=== PATIENT | female | born 1965 | race Two or more races ===

== ENCOUNTER 2018-08-24 14:45 | Outpatient (CLI) | payer MEDICARE, OTHER | END 2018-08-24 23:59 | disposition home or self-care (01) | LOC: WOU 14:45 | PROVIDERS: ATTEND Surgery | DX: F42.4 Excoriation (skin-picking) disorder (principal); K51.918 Ulcerative colitis, unspecified with other complication; K43.5 Parastomal hernia without obstruction or gangrene; E66.3 Overweight; Z68.28 Body mass index [BMI] 28.0-28.9, adult; Z93.2 Ileostomy status; Z79.899 Other long term (current) drug therapy | CPT/HCPCS: A6402; G0463 ==

== ENCOUNTER 2018-09-27 14:08 | Outpatient (CLI) | payer MEDICARE, OTHER | END 2018-09-27 23:59 | disposition home or self-care (01) | LOC: WOU 14:08 | PROVIDERS: ATTEND Surgery | DX: F42.4 Excoriation (skin-picking) disorder (principal); Z93.2 Ileostomy status; Z87.19 Personal history of other diseases of the digestive system; K43.5 Parastomal hernia without obstruction or gangrene; E66.3 Overweight; Z68.28 Body mass index [BMI] 28.0-28.9, adult; Z79.899 Other long term (current) drug therapy | CPT/HCPCS: A6402; G0463 ==

== ENCOUNTER 2018-10-04 14:30 | Outpatient (CLI) | payer MEDICARE, OTHER | END 2018-10-04 23:59 | disposition home or self-care (01) | LOC: WOU 14:30 | PROVIDERS: ATTEND Surgery | DX: F42.4 Excoriation (skin-picking) disorder (principal); Z93.2 Ileostomy status; K43.5 Parastomal hernia without obstruction or gangrene; K51.918 Ulcerative colitis, unspecified with other complication; E66.3 Overweight; Z68.26 Body mass index [BMI] 26.0-26.9, adult; Z79.899 Other long term (current) drug therapy | CPT/HCPCS: A4364; G0463 ==

== ENCOUNTER 2018-10-11 14:03 | Outpatient (CLI) | payer MEDICARE, OTHER | END 2018-10-11 23:59 | disposition home or self-care (01) | LOC: WOU 14:03 | PROVIDERS: ATTEND Surgery | DX: F42.4 Excoriation (skin-picking) disorder (principal); Z93.2 Ileostomy status; K43.5 Parastomal hernia without obstruction or gangrene; Z87.19 Personal history of other diseases of the digestive system; E66.3 Overweight; Z68.28 Body mass index [BMI] 28.0-28.9, adult | CPT/HCPCS: G0463 ==

== ENCOUNTER 2019-02-07 13:05 | Outpatient (CLI) | payer MEDICARE, OTHER | END 2019-02-07 23:59 | disposition home or self-care (01) | LOC: WOU 13:05 | PROVIDERS: ATTEND Surgery | DX: L98.8 Other specified disorders of the skin and subcutaneous tissue (principal); K43.5 Parastomal hernia without obstruction or gangrene; E66.3 Overweight; Z68.28 Body mass index [BMI] 28.0-28.9, adult; Z93.2 Ileostomy status; Z79.899 Other long term (current) drug therapy | CPT/HCPCS: G0463 ==

== ENCOUNTER 2019-05-23 15:46 | Outpatient (CLI) | payer MEDICARE, MEDICAID | END 2019-05-23 23:59 | disposition home or self-care (01) | LOC: WOU 15:46 | PROVIDERS: ATTEND Surgery | DX: L98.8 Other specified disorders of the skin and subcutaneous tissue (principal); K43.5 Parastomal hernia without obstruction or gangrene; E66.3 Overweight; Z68.28 Body mass index [BMI] 28.0-28.9, adult; Z93.2 Ileostomy status; Z79.899 Other long term (current) drug therapy | CPT/HCPCS: A4217; G0463 ==

== ENCOUNTER 2019-09-17 19:43 | Emergency (ER) | payer MEDICARE, OTHER ==
[~2019-09-17] VITALS: Ht 157.5 cm; Wt 74.8 kg
--- NOTE | 2019-09-17 19:49 | NUR ---
PT AAOX4. AMBULATORY WITH STEADY GAIT. BIBSELF C/O LEFT INDEX FINGER LAC S/P [place]UTTING [place]. EMT AT BEDSIDE FOR WOUND CARE. AWAITING PA FOR EVAL AND ORDERS. NO ACUTE DISTRESS NOTED. VSS.
[2019-09-17] MEDS ORDERED: TDAP [DIPH/PERTUSSIS/TET] 0.5 ML VIAL IM ONE ×2 (20:00→20:02)
[2019-09-17] MEDS ORDERED: LIDOCAINE HCL/MPF 1% 30 ML VIAL IJ ONE (20:01)
--- NOTE | 2019-09-17 20:08 | NUR ---
PA AT BEDSIDE FOR SUTURE
--- NOTE | 2019-09-17 20:30 | NUR ---
Patient discharged to home in stable condition. Written and verbal after care instructions given. Patient verbalizes understanding of instruction and RX. Pt ambulated with steady gait.
[2019-09-17 20:31] VITALS: BP 119/71
[2019-09-17] MEDS ORDERED: CEPHALEXIN MONOHYDRATE 500 MG CAPSULE PO ONE ×2 (20:37→21:00)
== END 2019-09-17 20:39 | disposition home or self-care (01) ==
LOC: ER 19:43
DX: S61.211A Laceration without foreign body of left index finger without damage to nail, initial encounter (principal); W26.8XXA Contact with other sharp object(s), not elsewhere classified, initial encounter; Y93.89 Activity, other specified; Y92.89 Other specified places as the place of occurrence of the external cause; Y99.8 Other external cause status
CPT/HCPCS: 12001; 90471; 90715; 99283; A6403; J3490

== ENCOUNTER 2019-09-27 20:04 | Emergency (ER) | payer MEDICARE, OTHER ==
[~2019-09-27] VITALS: Ht 157.5 cm; Wt 74.8 kg
[2019-09-27 20:11] VITALS: BP 133/85
--- NOTE | 2019-09-27 20:34 | NUR ---
PATIENT'S SUTURES ARE REMOVED
--- NOTE | 2019-09-27 20:39 | NUR ---
Patient discharged to home in stable condition. Written and verbal after care instructions given. Patient verbalizes understanding of instruction.
== END 2019-09-27 20:41 | disposition home or self-care (01) ==
LOC: ER 20:09
DX: S61.211D Laceration without foreign body of left index finger without damage to nail, subsequent encounter (principal); X58.XXXD Exposure to other specified factors, subsequent encounter

== ENCOUNTER 2020-04-23 14:55 | Outpatient (CLI) | payer MEDICARE, OTHER | END 2020-04-23 23:59 | disposition home or self-care (01) | LOC: WOU 14:55 | PROVIDERS: ATTEND Surgery | DX: L98.8 Other specified disorders of the skin and subcutaneous tissue (principal); K43.5 Parastomal hernia without obstruction or gangrene; E66.3 Overweight; Z68.28 Body mass index [BMI] 28.0-28.9, adult; Z93.2 Ileostomy status; Z79.899 Other long term (current) drug therapy; Z87.19 Personal history of other diseases of the digestive system | CPT/HCPCS: G0463 ==

== ENCOUNTER 2020-10-15 14:05 | Outpatient (CLI) | payer MEDICARE, OTHER | END 2020-10-15 23:59 | disposition home or self-care (01) | LOC: WOU 14:05 | PROVIDERS: ATTEND Surgery | DX: K94.03 Colostomy malfunction (principal); R23.8 Other skin changes; K43.5 Parastomal hernia without obstruction or gangrene; E66.3 Overweight; Z68.28 Body mass index [BMI] 28.0-28.9, adult | CPT/HCPCS: G0463 ==

== ENCOUNTER 2020-11-30 17:54 | Emergency (ER) | payer MEDICARE, OTHER ==
[~2020-11-30] VITALS: Ht 157.5 cm; Wt 81.2 kg
[2020-11-30 18:47] VITALS: BP 129/81
--- NOTE | 2020-11-30 18:49 | NUR ---
TO ER CHAIR 3, C/O BLOOD IN URINE AND PAIN WHEN URINATING P/S OF 09/22, AAOX4, BREATHING EVEN AND NON LABORED, AWAITING MD JONES
--- NOTE | 2020-11-30 18:50 | NUR ---
URINE COLLECTED AND SENT LAB
[2020-11-30 19:08] LABS: BILIRUBIN,URINE Negative (NEGATIVE); COLOR,URINE YELLOW (YELLOW); LEUKOCYTE ESTERASE ,URINE Small (NEGATIVE); NITRITE, URINE Negative (NEGATIVE); PH,URINE 5.5 (5.0-8.0); PROTEIN,URINE 30 mg/dl (NEGATIVE); UGLUCOSE Negative (NEGATIVE); UROBILINOGEN,URINE 0.2 EU/dL (0.2)
[2020-11-30 19:15] LABS: BACTERIA,URINE 1+ /HPF (None Seen); RBC,URINE 21-50 /HPF (0-2); SQUAMOUS EPITHELIAL CELL,UR Few /HPF (None Seen)
[2020-11-30] MEDS ORDERED: CEPH500C2 PO (19:54)
== END 2020-11-30 20:00 | disposition home or self-care (01) ==
LOC: ER 18:08
DX: N39.0 Urinary tract infection, site not specified (principal); F10.10 Alcohol abuse, uncomplicated; Y90.9 Presence of alcohol in blood, level not specified; Z79.899 Other long term (current) drug therapy
CPT/HCPCS: 81001; 87086-TC; 87186-TC

== ENCOUNTER 2021-01-21 14:40 | Outpatient (CLI) | payer MEDICARE, OTHER ==
[~2021-01-21 14:40] MED LIST: CEPH500C2 PO
== END 2021-01-21 23:59 | disposition home or self-care (01) ==
LOC: WOU 14:40
PROVIDERS: ATTEND Surgery
DX: K94.09 Other complications of colostomy (principal); K43.5 Parastomal hernia without obstruction or gangrene; E66.3 Overweight; Z68.28 Body mass index [BMI] 28.0-28.9, adult; Z79.899 Other long term (current) drug therapy
CPT/HCPCS: G0463

== ENCOUNTER 2021-05-03 10:10 | Outpatient (CLI) | payer MEDICARE, OTHER | END 2021-05-03 23:59 | disposition home or self-care (01) | LOC: WOU 10:10 | PROVIDERS: ATTEND Surgery | DX: K94.09 Other complications of colostomy (principal); R23.8 Other skin changes; K43.5 Parastomal hernia without obstruction or gangrene; E66.3 Overweight; Z68.28 Body mass index [BMI] 28.0-28.9, adult; Z79.899 Other long term (current) drug therapy | CPT/HCPCS: G0463 ==

== ENCOUNTER 2021-07-29 10:05 | Outpatient (CLI) | payer MEDICARE, OTHER | END 2021-07-29 23:59 | disposition home or self-care (01) | LOC: WOU 10:05 | PROVIDERS: ATTEND Surgery | DX: K94.09 Other complications of colostomy (principal); K43.5 Parastomal hernia without obstruction or gangrene; E66.3 Overweight; Z68.28 Body mass index [BMI] 28.0-28.9, adult; Z79.899 Other long term (current) drug therapy | CPT/HCPCS: G0463 ==